=== PATIENT | female | born 1970 | race Caucasian/White ===

== ENCOUNTER → 2017-08-19 | Outpatient (CLI) | payer OTHER ==
[~2017-08-19] MED LIST: ACETAMINOPHEN-1 EAC1 PO; AMBIEN 10 MG TA10 MG PO; BENZTROPINE ME0.5 MG PO; BENZTROPINE MES1 MG PO; BENZTROPINE MESY2 MG PO; CIPRO250 M1 PO; CIPRO500 MG; CLONAZEPAM 1 MG1 M1 PO; COLACE100 MG PO; CRESTOR10 MG PO; CRESTOR40 MG PO; ERYTHROMYCIN250 M1 PO; ESTRATEST; FENOFIBRATE160 MG PO; FLEXERIL PO; HYDROCODONE-AP1 EA11 PO; KEFLEX500 MG PO; LAMOTRIGINE200 MG PO; LITHIUM CARBON300 M3 PO; LORTAB 5 MG/5001 TA1 PO; LOXAPINE25 MG PO; LOXAPINE50 MG PO; MIRALAX17 GM PO; NARATRIPTAN2.5 MG PO; NEURONTIN 300300 M1 PO; NORCO 5-325 TA1 EACH PO; NORVASC5 MG; ONDANSETRON HCL4 M2 PO; OXCARBAZEPINE600 MG PO; OXYCODONE HCL 55 MG PO; PERCOCET 5-3251 EACH PO; PHENERGAN 25 MG25 M1 PO; PROPRANOLOL 1010 M1 PO; REGLAN 10 MG TA10 MG PO; ROBAXIN500 MG PO; TOPAMAX200 MG PO; TOPIRAMATE200 MG PO; TRAMADOL 50 MG50 MG; VITAMIN D 5050000 I1 PO; ZOFRAN4 MG PO; [UNRECOGNIZED DRUG - OTHER]; [UNRECOGNIZED DRUG - OTHER] PO
[2017-08-19 11:25] LABS: ABSOLUTE BASOPHILS 0.1 thou/uL (0.0-0.2); ABSOLUTE EOSINOPHILS 0.2 thou/uL (0.0-0.7); ABSOLUTE LYMPHOCYTES 2.8 thou/uL (0.8-5.3); ABSOLUTE MONOCYTES 0.6 thou/uL (0.0-1.2); ABSOLUTE NEUTROPHILS 11.7 thou/uL (1.6-8.1); BASOPHILS 0.7 %; EOSINOPHILS 1.1 %; HEMOGLOBIN 13.1 gm/dL (12.0-15.0); LYMPHOCYTES 18.1 %; MCHC 32.7 g/dL (28.0-37.0); MCV 94.6 fL (80.0-100.0); MONOCYTES 4.2 %; MPV 8.1 fl. (7.2-11.1); NUCLEATED RBCS 0 /100WBC; PLATELET COUNT* 346 thou/uL (150-400); POLYS 75.9 %; RBC 4.23 mil/uL (4.20-5.00); RDW-CV 14.5 % (10.5-14.5); WBC 15.4 thou/uL (4.0-11.0)
[2017-08-19 12:03] LABS: ALBUMIN 3.7 g/dL (3.4-5.0); CALCIUM 8.9 mg/dL (8.5-10.1); CREATININE 0.7 mg/dL (0.6-1.3); POTASSIUM 3.6 mmol/L (3.5-5.1); TOTAL BILIRUBIN 0.2 mg/dL (<0.1-1.0); TOTAL PROTEIN 6.9 g/dL (6.4-8.2)
[2017-08-19 17:12] LABS: PROLACTIN 5.9 ng/mL (4.8-23.3)
== END ==
LOC: M.LAB 10:07 → M.ULTRA 10:07
DX: F31.9 Bipolar disorder, unspecified (principal); M54.9 Dorsalgia, unspecified

== ENCOUNTER 2017-08-20 09:20 | Emergency (ER) | payer OTHER ==
[~2017-08-20] VITALS: Ht 160 cm; Wt 49.9 kg
[~2017-08-20 09:20] MED LIST changes: -PERCOCET 5-3251 EACH PO
[2017-08-20] MEDS ORDERED: PERCOCET 5-3251 EACH PO (10:43)
[2017-08-20 10:52] VITALS: BP 126/78
== END 2017-08-20 10:53 | disposition home or self-care (01) ==
LOC: M.ERS 09:20
DX: S30.0XXA Contusion of lower back and pelvis, initial encounter (principal); F31.9 Bipolar disorder, unspecified; F41.9 Anxiety disorder, unspecified; E78.5 Hyperlipidemia, unspecified; Z90.710 Acquired absence of both cervix and uterus; Z88.0 Allergy status to penicillin; Z88.5 Allergy status to narcotic agent; Z88.8 Allergy status to other drugs, medicaments and biological substances; W18.09XA Striking against other object with subsequent fall, initial encounter; Y93.89 Activity, other specified; Y92.098 Other place in other non-institutional residence as the place of occurrence of the external cause; Y99.8 Other external cause status

== ENCOUNTER → 2017-08-29 | Outpatient (CLI) | payer OTHER ==
[~2017-08-29] MED LIST changes: +PERCOCET 5-3251 EACH PO
== END ==
LOC: M.CT 12:00
DX: N32.89 Other specified disorders of bladder (principal); M54.9 Dorsalgia, unspecified; Z87.442 Personal history of urinary calculi

== ENCOUNTER → 2017-10-06 | Outpatient (CLI) | payer OTHER | LOC: M.RAD 10:44 | DX: J20.9 Acute bronchitis, unspecified (principal); D72.829 Elevated white blood cell count, unspecified; Z88.8 Allergy status to other drugs, medicaments and biological substances; Z88.5 Allergy status to narcotic agent ==

== ENCOUNTER 2017-10-31 21:40 | Emergency (ER) | payer OTHER ==
[~2017-10-31] VITALS: Ht 160 cm; Wt 47.6 kg
[2017-10-31 22:11] LABS: URINE BILIRUBIN NEGATIVE (Negative); URINE BLOOD NEGATIVE (Negative); URINE CLARITY CLEAR; URINE COLOR YELLOW; URINE GLUCOSE-RANDOM NEGATIVE (Negative); URINE KETONES NEGATIVE (Negative); URINE LEUKOCYTES-REFLEX NEGATIVE (Negative); URINE NITRITE-REFLEX NEGATIVE (Negative); URINE PROTEIN NEGATIVE (Negative); URINE SPECIFIC GRAVITY <= 1.005 (1.005-1.030); URINE UROBILINOGEN 0.2 E.U./dl (0.2-1.0)
[2017-10-31 23:46] VITALS: BP 114/74
== END 2017-10-31 23:47 | disposition home or self-care (01) ==
LOC: M.ERS 21:40
PROVIDERS: Emergency Medicine
DX: F41.9 Anxiety disorder, unspecified (principal); T50.995A Adverse effect of other drugs, medicaments and biological substances, initial encounter; F31.9 Bipolar disorder, unspecified; E78.5 Hyperlipidemia, unspecified; Z88.5 Allergy status to narcotic agent; Z88.8 Allergy status to other drugs, medicaments and biological substances; Z88.0 Allergy status to penicillin; Z88.6 Allergy status to analgesic agent; Y92.89 Other specified places as the place of occurrence of the external cause

== ENCOUNTER → 2017-11-07 | Outpatient (CLI) | payer OTHER | LOC: M.RAD 10:10 | DX: R91.8 Other nonspecific abnormal finding of lung field (principal) ==

== ENCOUNTER → 2018-02-08 | Outpatient (CLI) | payer OTHER ==
[2018-02-08 12:10] LABS: ABSOLUTE EOSINOPHILS 0.3 thou/uL (0.0-0.7); HEMOGLOBIN 12.6 gm/dL (12.0-15.0); MCH 31.8 pg (26.0-34.0); MPV 8.4 fl. (7.2-11.1); WBC 12.3 thou/uL (4.0-11.0)
[2018-02-08 12:11] LABS: ABSOLUTE BASOPHILS 0.2 thou/uL (0.0-0.2); ABSOLUTE LYMPHOCYTES 3.5 thou/uL (0.8-5.3); ABSOLUTE MONOCYTES 0.7 thou/uL (0.0-1.2); ABSOLUTE NEUTROPHILS 7.6 thou/uL (1.6-8.1); BASOPHILS 1.3 %; EOSINOPHILS 2.4 %; HEMATOCRIT 38.3 % (37.0-47.0); LYMPHOCYTES 28.7 %; MCHC 32.9 g/dL (28.0-37.0); MCV 96.8 fL (80.0-100.0); MONOCYTES 6.1 %; NUCLEATED RBCS 0 /100WBC; PLATELET COUNT* 543 thou/uL (150-400); POLYS 61.5 %; RBC 3.96 mil/uL (4.20-5.00); RDW-CV 14.8 % (10.5-14.5)
[2018-02-08 12:22] LABS: ALBUMIN 3.6 g/dL (3.4-5.0); CALCIUM 8.8 mg/dL (8.5-10.1); CREATININE 0.6 mg/dL (0.6-1.3); MAGNESIUM 2.1 mg/dL (1.8-2.4); POTASSIUM 4.9 mmol/L (3.5-5.1); TOTAL BILIRUBIN 0.2 mg/dL (<0.1-1.0); TOTAL PROTEIN 7.2 g/dL (6.4-8.2)
[2018-02-08 21:10] LABS: PROLACTIN 3.8 ng/mL (4.8-23.3)
== END ==
LOC: M.LAB 11:12
PROVIDERS: Internal Medicine
DX: E05.90 Thyrotoxicosis, unspecified without thyrotoxic crisis or storm (principal); E83.52 Hypercalcemia; E78.5 Hyperlipidemia, unspecified

== ENCOUNTER → 2018-03-08 | Outpatient (CLI) | payer OTHER ==
[2018-03-08 11:35] LABS: ABSOLUTE BASOPHILS 0.2 thou/uL (0.0-0.2); ABSOLUTE EOSINOPHILS 0.4 thou/uL (0.0-0.7); ABSOLUTE LYMPHOCYTES 3.1 thou/uL (0.8-5.3); ABSOLUTE MONOCYTES 1.1 thou/uL (0.0-1.2); ABSOLUTE NEUTROPHILS 13.1 thou/uL (1.6-8.1); EOSINOPHILS 2.1 %; HEMATOCRIT 38.6 % (37.0-47.0); HEMOGLOBIN 12.8 gm/dL (12.0-15.0); LYMPHOCYTES 17.4 %; MCH 31.7 pg (26.0-34.0); MCHC 33.2 g/dL (28.0-37.0); MCV 95.3 fL (80.0-100.0); MONOCYTES 6.3 %; NUCLEATED RBCS 0 /100WBC; PLATELET COUNT* 444 thou/uL (150-400); POLYS 73.2 %; RBC 4.05 mil/uL (4.20-5.00); RDW-CV 14.2 % (10.5-14.5); WBC 17.9 thou/uL (4.0-11.0)
[2018-03-08 11:48] LABS: ALBUMIN 3.7 g/dL (3.4-5.0); CALCIUM 9.5 mg/dL (8.5-10.1); CREATININE 0.7 mg/dL (0.6-1.3); POTASSIUM 4.4 mmol/L (3.5-5.1); TOTAL BILIRUBIN 0.1 mg/dL (<0.1-1.0); TOTAL PROTEIN 7.9 g/dL (6.4-8.2)
== END ==
LOC: M.LAB 10:17 → M.ULTRA 10:17
PROVIDERS: Internal Medicine
DX: Z12.31 Encounter for screening mammogram for malignant neoplasm of breast (principal); E03.9 Hypothyroidism, unspecified; E04.1 Nontoxic single thyroid nodule

== ENCOUNTER → 2018-09-28 | Outpatient (CLI) | payer OTHER ==
[2018-09-28 12:22] LABS: ABSOLUTE BASOPHILS 0.1 thou/uL (0.0-0.2); ABSOLUTE EOSINOPHILS 0.3 thou/uL (0.0-0.7); ABSOLUTE LYMPHOCYTES 2.9 thou/uL (0.8-5.3); ABSOLUTE MONOCYTES 0.8 thou/uL (0.0-1.2); ABSOLUTE NEUTROPHILS 11.6 thou/uL (1.6-8.1); BASOPHILS 0.6 %; EOSINOPHILS 1.8 %; HEMOGLOBIN 12.2 gm/dL (12.0-15.0); LYMPHOCYTES 18.6 %; MCH 28.2 pg (26.0-34.0); MCHC 32.9 g/dL (28.0-37.0); MCV 85.8 fL (80.0-100.0); MONOCYTES 5.1 %; MPV 8.5 fl. (7.2-11.1); NUCLEATED RBCS 0 /100WBC; PLATELET COUNT* 410 thou/uL (150-400); POLYS 73.9 %; RBC 4.31 mil/uL (4.20-5.00); RDW-CV 16.1 % (10.5-14.5); WBC 15.7 thou/uL (4.0-11.0)
[2018-09-28 12:36] LABS: ALBUMIN 3.5 g/dL (3.4-5.0); ALKALINE PHOSPHATASE 148 U/L (46-116); ANION GAP 12 mmol/L (7-16); BUN 8 mg/dL (7-18); CALCIUM 8.6 mg/dL (8.5-10.1); CHLORIDE 104 mmol/L (98-107); CHOLESTEROL 183 mg/dL (<200); CO2 23 mmol/L (21-32); CREATININE 0.8 mg/dL (0.6-1.3); GLUCOSE 137 mg/dL (70-99); HDL CHOLESTEROL 42 mg/dL (>40); LDL CHOLESTEROL 97 mg/dL (<100); SGOT 15 U/L (15-37); SGPT 27 U/L (30-65); SODIUM 139 mmol/L (136-145); TC:HDL 4.4 Ratio (Not establshd); TOTAL BILIRUBIN 0.3 mg/dL (<0.1-1.0); TOTAL PROTEIN 7.4 g/dL (6.4-8.2); TRIGLYCERIDE 221 mg/dL (<150); VLDL 44 mg/dL (<40)
[2018-09-28 12:37] LABS: SERUM ASSESSMENT Clear
[2018-09-28 19:07] LABS: PROLACTIN 5.2 ng/mL (4.8-23.3)
[2018-10-01 12:07] LABS: ALPHA TOCOPHEROL 19.6 mg/L (7.0-25.1); GAMMA TOCOPHEROL 0.3 mg/L (0.5-5.5)
== END ==
LOC: M.LAB 11:30
PROVIDERS: General Practice
DX: R06.02 Shortness of breath (principal); F31.9 Bipolar disorder, unspecified; E05.90 Thyrotoxicosis, unspecified without thyrotoxic crisis or storm; E83.52 Hypercalcemia

== ENCOUNTER 2018-12-09 14:32 | Emergency (ER) | payer OTHER ==
[~2018-12-09] VITALS: Ht 160 cm; Wt 56.7 kg
[2018-12-09] MEDS ORDERED: ACETAMINOPHEN-1 EAC1 PO (14:53)
[2018-12-09] MEDS ORDERED: TESSALON PERLE100 MG PO (14:53)
[2018-12-09] MEDS ORDERED: PROMETHAZINE V120 ML PO (14:53)
[2018-12-09] MEDS ORDERED: PREDNISONE 20 M20 MG PO (14:53)
[2018-12-09] MEDS ORDERED: ZPAK PO (14:53)
[2018-12-09 15:14] VITALS: BP 110/74
== END 2018-12-09 15:17 | disposition home or self-care (01) ==
LOC: M.ERS 14:32
DX: J20.9 Acute bronchitis, unspecified (principal); F41.9 Anxiety disorder, unspecified; F31.9 Bipolar disorder, unspecified; E78.5 Hyperlipidemia, unspecified; F17.210 Nicotine dependence, cigarettes, uncomplicated; Z90.710 Acquired absence of both cervix and uterus; Z90.49 Acquired absence of other specified parts of digestive tract; Z98.890 Other specified postprocedural states; Z88.6 Allergy status to analgesic agent; Z88.0 Allergy status to penicillin; Z88.5 Allergy status to narcotic agent; Z88.8 Allergy status to other drugs, medicaments and biological substances

== ENCOUNTER → 2019-01-25 | Outpatient (CLI) | payer OTHER ==
[~2019-01-25] MED LIST changes: +PREDNISONE 20 M20 MG PO; +PROMETHAZINE V120 ML PO; +TESSALON PERLE100 MG PO; +ZPAK PO
[2019-01-25 11:53] LABS: ABSOLUTE BASOPHILS 0.2 thou/uL (0.0-0.2); ABSOLUTE EOSINOPHILS 0.3 thou/uL (0.0-0.7); ABSOLUTE LYMPHOCYTES 4.1 thou/uL (0.8-5.3); ABSOLUTE MONOCYTES 1.1 thou/uL (0.0-1.2); ABSOLUTE NEUTROPHILS 9.4 thou/uL (1.6-8.1); EOSINOPHILS 2.3 %; HEMATOCRIT 39.3 % (37.0-47.0); HEMOGLOBIN 12.4 gm/dL (12.0-15.0); MCH 27.5 pg (26.0-34.0); MCHC 31.5 g/dL (28.0-37.0); MCV 87.2 fL (80.0-100.0); MONOCYTES 7.3 %; MPV 8.5 fl. (7.2-11.1); NUCLEATED RBCS 0 /100WBC; PLATELET COUNT* 375 thou/uL (150-400); POLYS 62.4 %; RBC 4.51 mil/uL (4.20-5.00); RDW-CV 16.2 % (10.5-14.5); WBC 15.1 thou/uL (4.0-11.0)
[2019-01-25 12:05] LABS: ALBUMIN 3.6 g/dL (3.4-5.0); ALKALINE PHOSPHATASE 119 U/L (46-116); ANION GAP 13 mmol/L (7-16); BUN 17 mg/dL (7-18); CALCIUM 9.2 mg/dL (8.5-10.1); CHLORIDE 110 mmol/L (98-107); CHOLESTEROL 216 mg/dL (<200); CO2 21 mmol/L (21-32); CREATININE 1.2 mg/dL (0.6-1.3); GLUCOSE 109 mg/dL (70-99); HDL CHOLESTEROL 44 mg/dL (>40); LDL CHOLESTEROL 118 mg/dL (<100); SGOT 10 U/L (15-37); SGPT 26 U/L (30-65); SODIUM 144 mmol/L (136-145); TC:HDL 4.9 Ratio (Not establshd); TOTAL BILIRUBIN 0.1 mg/dL (<0.1-1.0); TOTAL PROTEIN 7.1 g/dL (6.4-8.2); TRIGLYCERIDE 272 mg/dL (<150); VLDL 54 mg/dL (<40)
[2019-01-25 12:06] LABS: SERUM ASSESSMENT Clear
[2019-01-25 23:08] LABS: PROLACTIN 12.1 ng/mL (4.8-23.3)
== END ==
LOC: M.LAB 11:22
DX: F31.9 Bipolar disorder, unspecified (principal)

== ENCOUNTER 2019-05-27 12:00 | Emergency (ER) | payer OTHER ==
[~2019-05-27] VITALS: Ht 160 cm; Wt 56.7 kg
[2019-05-27] MEDS ORDERED: SYNTHROID50 MCG PO (12:14)
[2019-05-27] MEDS ORDERED: ASA81BEC PO (12:14)
[2019-05-27] MEDS ORDERED: BENZTROPINE MES1 MG PO (12:14)
[2019-05-27] MEDS ORDERED: PROTONIX40 M2 PO (12:14)
[2019-05-27] MEDS ORDERED: LOXAPINE50 MG PO (12:15)
[2019-05-27] MEDS ORDERED: SINGULAIR5 MG PO (12:15)
[2019-05-27] MEDS ORDERED: NORCO 5-325 TA1 EAC1 PO (13:43)
[2019-05-27 14:40] VITALS: BP 148/89
== END 2019-05-27 14:40 | disposition home or self-care (01) ==
LOC: M.ERS 12:00
DX: S82.891A Other fracture of right lower leg, initial encounter for closed fracture (principal); F41.9 Anxiety disorder, unspecified; E78.5 Hyperlipidemia, unspecified; F31.9 Bipolar disorder, unspecified; Z90.710 Acquired absence of both cervix and uterus; Z90.89 Acquired absence of other organs; Z88.0 Allergy status to penicillin; Z88.5 Allergy status to narcotic agent; Z88.8 Allergy status to other drugs, medicaments and biological substances; W19.XXXA Unspecified fall, initial encounter; Y93.89 Activity, other specified; Y92.89 Other specified places as the place of occurrence of the external cause; Y99.8 Other external cause status

== ENCOUNTER → 2019-05-29 | Outpatient (CLI) | payer OTHER ==
[~2019-05-29] MED LIST changes: +ASA81BEC PO; +NORCO 5-325 TA1 EAC1 PO; +PROTONIX40 M2 PO; +SINGULAIR5 MG PO; +SYNTHROID50 MCG PO
== END ==
LOC: M.CT 10:52
DX: G31.89 Other specified degenerative diseases of nervous system (principal); W19.XXXA Unspecified fall, initial encounter

== ENCOUNTER → 2019-10-31 | Outpatient (CLI) | payer OTHER | LOC: M.CT 16:00 | DX: K56.41 Fecal impaction (principal); Q44.7 Other congenital malformations of liver; K31.89 Other diseases of stomach and duodenum; I70.0 Atherosclerosis of aorta; Z90.49 Acquired absence of other specified parts of digestive tract; Z90.710 Acquired absence of both cervix and uterus ==

== ENCOUNTER 2020-02-28 11:15 | Emergency (ER) | payer OTHER ==
[~2020-02-28] VITALS: Ht 167.6 cm; Wt 72.6 kg
[2020-02-28] MEDS ORDERED: HYDROCODON-ACE1 EAC7 PO (12:18)
[2020-02-28] MEDS ORDERED: MEDROLDOSEPACK PO (12:18)
[2020-02-28 13:01] VITALS: BP 120/98
== END 2020-02-28 13:01 | disposition home or self-care (01) ==
LOC: M.ERS 11:15
DX: M77.9 Enthesopathy, unspecified (principal); E78.5 Hyperlipidemia, unspecified; Z87.891 Personal history of nicotine dependence; Z88.5 Allergy status to narcotic agent; Z88.0 Allergy status to penicillin; Z88.8 Allergy status to other drugs, medicaments and biological substances; Z98.890 Other specified postprocedural states; Z90.710 Acquired absence of both cervix and uterus; Z90.49 Acquired absence of other specified parts of digestive tract

== ENCOUNTER → 2020-03-04 | Outpatient (CLI) | payer OTHER ==
[~2020-03-04] MED LIST changes: +HYDROCODON-ACE1 EAC7 PO; +MEDROLDOSEPACK PO
== END ==
LOC: M.MRI
PROVIDERS: ATTEND Orthopaedic Surgery Hand Surgery
DX: S46.812A Strain of other muscles, fascia and tendons at shoulder and upper arm level, left arm, initial encounter (principal); M77.9 Enthesopathy, unspecified; M18.12 Unilateral primary osteoarthritis of first carpometacarpal joint, left hand; X58.XXXA Exposure to other specified factors, initial encounter; Y93.89 Activity, other specified; Y92.89 Other specified places as the place of occurrence of the external cause; Y99.8 Other external cause status

== ENCOUNTER → 2020-09-01 | Outpatient (CLI) | payer OTHER ==
[2020-09-01 11:37] LABS: ABSOLUTE BASOPHILS 0.1 thou/uL (0.0-0.2); ABSOLUTE EOSINOPHILS 0.2 thou/uL (0.0-0.7); ABSOLUTE LYMPHOCYTES 2.3 thou/uL (0.8-5.3); ABSOLUTE MONOCYTES 0.7 thou/uL (0.0-1.2); ABSOLUTE NEUTROPHILS 5.9 thou/uL (1.6-8.1); BASOPHILS 1.2 %; EOSINOPHILS 1.9 %; HEMATOCRIT 38.3 % (37.0-47.0); HEMOGLOBIN 12.9 gm/dL (12.0-15.0); LYMPHOCYTES 24.6 %; MCH 31.7 pg (26.0-34.0); MCHC 33.7 g/dL (28.0-37.0); MONOCYTES 7.3 %; NUCLEATED RBCS 0 /100WBC; PLATELET COUNT* 339 thou/uL (150-400); RBC 4.08 mil/uL (4.20-5.00); RDW-CV 13.5 % (10.5-14.5); WBC 9.2 thou/uL (4.0-11.0)
[2020-09-01 11:51] LABS: ALBUMIN 3.8 g/dL (3.4-5.0); ALKALINE PHOSPHATASE 160 U/L (46-116); ANION GAP 12 mmol/L (7-16); BUN 23 mg/dL (7-18); CALCIUM 9.8 mg/dL (8.5-10.1); CHLORIDE 103 mmol/L (98-107); CHOLESTEROL 207 mg/dL (<200); CO2 24 mmol/L (21-32); GLUCOSE 104 mg/dL (70-99); HDL CHOLESTEROL 39 mg/dL (>40); LDL CHOLESTEROL 99 mg/dL (<100); POTASSIUM 4.4 mmol/L (3.5-5.1); SERUM ASSESSMENT Clear; SGOT 17 U/L (15-37); SGPT 34 U/L (30-65); SODIUM 139 mmol/L (136-145); TC:HDL 5.3 Ratio (Not establshd); TOTAL BILIRUBIN 0.3 mg/dL (<0.1-1.0); TOTAL PROTEIN 7.5 g/dL (6.4-8.2); TRIGLYCERIDE 347 mg/dL (<150); VLDL 69 mg/dL (<40)
== END ==
LOC: M.ULTRA 10:30
PROVIDERS: ATTEND Nurse Practitioner Family
DX: Z12.31 Encounter for screening mammogram for malignant neoplasm of breast (principal); R10.84 Generalized abdominal pain

== ENCOUNTER → 2020-09-09 | Outpatient (CLI) | payer OTHER | LOC: M.CT 07:47 | PROVIDERS: ATTEND Nurse Practitioner Family | DX: G31.9 Degenerative disease of nervous system, unspecified (principal); R90.82 White matter disease, unspecified; R20.2 Paresthesia of skin ==

== ENCOUNTER → 2020-10-27 | Outpatient (CLI) | payer OTHER | LOC: M.CT 10-14 09:30 | PROVIDERS: ATTEND Nurse Practitioner Family | DX: Z13.6 Encounter for screening for cardiovascular disorders (principal); I25.10 Atherosclerotic heart disease of native coronary artery without angina pectoris; E78.00 Pure hypercholesterolemia, unspecified ==

== ENCOUNTER 2021-03-03 12:01 | Emergency (ER) | payer OTHER ==
[~2021-03-03] VITALS: Ht 160 cm; Wt 77.1 kg
[2021-03-03 13:30] VITALS: BP 130/80
== END 2021-03-03 13:32 | disposition home or self-care (01) ==
LOC: M.ERS 12:01
DX: G43.909 Migraine, unspecified, not intractable, without status migrainosus (principal); F31.9 Bipolar disorder, unspecified; F41.9 Anxiety disorder, unspecified; E78.5 Hyperlipidemia, unspecified; Z98.890 Other specified postprocedural states; Z90.711 Acquired absence of uterus with remaining cervical stump; Z90.49 Acquired absence of other specified parts of digestive tract; Z79.899 Other long term (current) drug therapy; Z79.82 Long term (current) use of aspirin; Z88.8 Allergy status to other drugs, medicaments and biological substances; Z88.1 Allergy status to other antibiotic agents; Z88.0 Allergy status to penicillin; Z88.5 Allergy status to narcotic agent; Z87.891 Personal history of nicotine dependence

== ENCOUNTER 2021-04-21 11:58 | Emergency (ER) | payer OTHER ==
[~2021-04-21] VITALS: Ht 160 cm; Wt 77.1 kg
[2021-04-21] MEDS ORDERED: FLAGYL500 M1 PO (12:24)
[2021-04-21] MEDS ORDERED: DOXYCYCLINE 10100 MG PO (12:24)
[2021-04-21] MEDS ORDERED: HYDROCODON-ACE1 EAC7 PO (12:24)
[2021-04-21 13:21] VITALS: BP 134/72
== END 2021-04-21 13:22 | disposition home or self-care (01) ==
LOC: M.ERS 11:58
DX: S51.811A Laceration without foreign body of right forearm, initial encounter (principal); F41.9 Anxiety disorder, unspecified; E78.5 Hyperlipidemia, unspecified; G43.909 Migraine, unspecified, not intractable, without status migrainosus; Z90.710 Acquired absence of both cervix and uterus; Z90.49 Acquired absence of other specified parts of digestive tract; Z79.82 Long term (current) use of aspirin; Z79.899 Other long term (current) drug therapy; Z87.891 Personal history of nicotine dependence; Z88.5 Allergy status to narcotic agent; Z88.0 Allergy status to penicillin; W54.0XXA Bitten by dog, initial encounter; Y93.89 Activity, other specified; Y92.89 Other specified places as the place of occurrence of the external cause; Y99.8 Other external cause status